=== PATIENT | female | born 1955 | race Two or more races ===

== ENCOUNTER 2017-07-05 14:06 | Emergency (ER) | payer MEDICAID ==
[2017-07-05 14:18] VITALS: BP 129/89
[2017-07-05] MEDS ORDERED: predniSONE 20 MG Tab PO ONE (14:45)
[2017-07-05] MEDS ORDERED: diphenhydrAMINE 50 MG Cap PO ONE (14:45)
--- NOTE | 2017-07-05 14:46 | EDM.PDOC ---
ED HPI GENERAL MEDICAL PROBLEM - General Chief Complaint: Allergic Reaction Stated Complaint: REACTION TO HAIR DYE Time Seen by Provider: 07/05/17 14:29 Source of Information: Reports: Patient History Limitations: Reports: No Limitations - History of Present Illness INITIAL COMMENTS - FREE TEXT/NARRATIVE: 62-year-old female with chief complaint of scalp itching and pain after using a hair dye. She used black hair dye last night dye her hair. She started getting itching and scalp pain. She washed her hair with abundant water and a hypoallergenic shampoo and now has redness of her scalp and pain and itching. No additional complaint. She has not taken any medications for this. - Related Data Allergies Allergy/AdvReac Type Severity Reaction Status Date / Time hair dye chemical Allergy Redness Uncoded 07/05/17 14:21 Home Meds: Home Meds Lisinopril/Hydrochlorothiazide [Lisinopril-Hctz 20-12.5 mg Tab] 1 tab PO DAILY 01/09/16 [History] Sucralfate 1 gram PO ASDIRECTED 01/09/16 [History] amLODIPine [Norvasc] 5 mg PO DAILY 01/09/16 [History] Prednisone [IMW: predniSONE] 60 mg PO WITHBREAKFAST #6 tab 07/05/17 [Rx] diphenhydrAMINE HCl [Benadryl] 25 mg PO QID PRN #30 capsule 07/05/17 [Rx] Past Medical History HEENT History: Reports: Impaired Vision Other HEENT History: wears glasses Cardiovascular History: Reports: Hypertension Gastrointestinal History: Reports: Cholelithiasis, Diverticulosis, GERD Other Gastrointestinal History: hiatal hernia, epigastric pain Genitourinary History: Reports: UTI, Recurrent [employer] History: Reports: Other Neuro History: syncope - Past Surgical History Female Surgical History: Reports: Tubal Ligation Social & Family History - Tobacco Use Smoking Status *Q: Current Every Day Smoker Years of Tobacco use: 1 Packs/Tins Daily: 0.3 Second Hand Smoke Exposure: No - Caffeine Use Caffeine Use: Reports: Coffee - Alcohol Use Days Per Week of Alcohol Use: 0 - Recreational Drug Use Recreational Drug Use: No Drug Use in Last 12 Months: No ED ROS ALLERGIC REACTION - Review of Systems Review Of Systems: See Below Constitutional: Denies: Fever Respiratory: Denies: Shortness of Breath Cardiovascular: Reports: No Symptoms GI/Abdominal: Reports: No Symptoms Skin: Reports: Pruritis, Rash ED EXAM GENERAL NO PERIP PULSE - Physical Exam Exam: See Below Exam Limited By: No Limitations General Appearance: Alert, WD/WN, No Apparent Distress Eye Exam: Bilateral Eye: Normal Inspection Ears: Normal External Exam Nose: Normal Inspection Throat/Mouth: Normal Inspection, Normal Oropharynx, Normal Voice, No Airway Compromise Head: Atraumatic, Normocephalic Neck: Normal Inspection, Supple, Non-Tender, Full Range of Motion Respiratory/Chest: No Respiratory Distress, Lungs Clear, Normal Breath Sounds. No: Wheezing Neurological: Alert, Oriented, Normal Cognition Psychiatric: Normal Affect, Normal Mood Skin Exam: Warm, Dry, Other (Scalp is erythematous and warm with some urticarial lesions also extending to the neck) Course - Vital Signs Last Recorded V/S: Last Vital Signs Temp 36.8 C 07/05/17 14:16 Pulse 84 07/05/17 14:16 Resp 20 07/05/17 14:16 BP 129/89 07/05/17 14:16 Pulse Ox 100 07/05/17 14:16 - Orders/Labs/Meds Meds: Medications Discontinued Medications Generic Name Dose Route Start Last Admin Trade Name Freq PRN Reason Stop Dose Admin Diphenhydramine HCl 50 mg 07/05/17 14:45 07/05/17 14:50 Benadryl PO 07/05/17 14:46 50 mg ONETIME ONE Administration Prednisone 60 mg 07/05/17 14:45 07/05/17 14:50 Prednisone PO 07/05/17 14:46 60 mg ONETIME ONE Administration Departure - Departure Time of Disposition: 15:05 Disposition: Home, Self-Care 01 Clinical Impression: Contact dermatitis Qualifiers: Contact dermatitis type: allergic Contact dermatitis trigger: dye Qualified Code(s): L23.4 - Allergic contact dermatitis due to dyes - Discharge Information Prescriptions: diphenhydrAMINE HCl [Benadryl] 25 mg PO QID PRN #30 capsule PRN Reason: Itching Prednisone [IMW: predniSONE] 60 mg PO WITHBREAKFAST #6 tab Referrals: PCP,None [Primary Care Provider] - Forms: ED Department Discharge Additional Instructions: 1. Take benadryl as prescribed for itching/rash 2. Take prednisone as prescribed to decrease scalp inflammation 3. Follow up with your primary care provider as needed for further care
== END 2017-07-05 15:41 | disposition home or self-care (01) ==
LOC: JD.ED 14:06
DX: L23.4 Allergic contact dermatitis due to dyes (principal); I10 Essential (primary) hypertension; F17.210 Nicotine dependence, cigarettes, uncomplicated; Z79.899 Other long term (current) drug therapy; Z87.440 Personal history of urinary (tract) infections
CPT/HCPCS: 99283; A9270

== ENCOUNTER 2021-10-28 17:36 | Emergency (ER) | payer MEDICAID, MEDICARE ==
[2021-10-28 18:05] VITALS: BP 177/97; PULSE 76
[2021-10-28] MEDS ORDERED: Ondansetron 4 MG/2 ML SDV IVPUSH ONE (18:18)
[2021-10-28] MEDS ORDERED: Sodium Chloride 0.9% 1,000 ML IV SCH (18:30)
[2021-10-28] MEDS: Sodium Chloride 0.9% 10 ML Syringe FLUSH PRN ×2 (18:37→20:37)
[2021-10-28] MEDS ORDERED: HYDROmorphone 1 MG/ML Syringe IVPUSH ONE (19:22)
[2021-10-28] MEDS ORDERED: Diatrizoate Meglumine/Diatrizoate Sodium 37% 120 ML Bottle PO ONE (19:42)
[2021-10-28] MEDS ORDERED: Iopamidol 612 MG/ML 100 ML Bottle IVPUSH ONE (19:42)
[2021-10-28] MEDS: Potassium Chloride 10 MEQ in Premix Bag 1 BAG IV SCH ×2 (20:49→21:56)
== END 2021-10-28 23:03 | disposition home or self-care (01) ==
LOC: JD.ED 17:36
DX: K40.90 Unilateral inguinal hernia, without obstruction or gangrene, not specified as recurrent (principal); E87.6 Hypokalemia; I10 Essential (primary) hypertension; K21.9 Gastro-esophageal reflux disease without esophagitis; Z87.891 Personal history of nicotine dependence; Z91.048 Other nonmedicinal substance allergy status; Z79.899 Other long term (current) drug therapy
CPT/HCPCS: 36415; 74177; 80053; 83690; 85025; 86140; 96365; 96366; 96375; 99284; J2405; J3480; J7030; Q9963; Q9967; U0002

== ENCOUNTER 2023-04-03 14:50 | Emergency (ER) | payer MEDICARE, MEDICAID ==
[2023-04-03] MEDS ORDERED: Adenosine 12 MG/4 ML SDV ONE (14:55)
[2023-04-03] MEDS ORDERED: Adenosine 6 MG/2 ML SDV IVPUSH ONE ×2 (14:55)
[2023-04-03] MEDS ORDERED: Adenosine 6 MG/2 ML SDV ONE (14:55)
[2023-04-03] MEDS ORDERED: Sodium Chloride 0.9% 10 ML Syringe FLUSH PRN (15:06)
[2023-04-03] MEDS ORDERED: Sodium Chloride 0.9% 1,000 ML IV SCH (15:15)
[2023-04-03 15:17] LABS: BASOPHILS ABSOLUTE AUTO 0.14 K/mm3 (0.01-0.08); BASOPHILS PERCENT AUTO 2.1 % (0.1-1.2); EOSINOPHILS ABSOLUTE AUTO 0.09 K/mm3 (0.04-0.36); EOSINOPHILS PERCENT AUTO 1.3 (0.7-5.8); HEMOGLOBIN 14.6 gm/dl (11.2-15.7); IMMATURE GRAN ABSOLUTE AUTO 0.01 K/mm3 (0.00-0.10); IMMATURE GRAN PERCENT AUTO 0.1 % (<=1.0); LYMPHOCYTES ABSOLUTE AUTO 4.51 K/mm3 (1.18-3.74); LYMPHOCYTES PERCENT AUTO 67.5 % (19.3-51.7); MEAN CORPUSCULAR HEMOGLOBIN 27.2 pg (25.6-32.2); MEAN CORPUSCULAR HGB CONC 32.4 g/dl (32.2-35.5); MEAN PLATELET VOLUME 11.3 fl (9.4-12.3); MONOCYTES ABSOLUTE AUTO 0.38 K/mm3 (0.24-0.36); MONOCYTES PERCENT AUTO 5.7 % (4.7-12.5); NEUTROPHILS ABSOLUTE AUTO 1.55 K/mm3 (1.56-6.13); NEUTROPHILS PERCENT AUTO 23.3 % (34.0-71.1); PLATELET COUNT,PLT 286 K/mm3 (182-369); RED BLOOD CELL COUNT 5.36 M/mm3 (3.98-5.22); WHITE BLOOD CELL COUNT,WBC 6.68 K/mm3 (3.98-10.04)
[2023-04-03 15:39] LABS: A/G RATIO 0.8 (1-2); ALBUMIN 3.6 g/dl (3.4-5.0); ANION GAP 14.2 (5-15); BILIRUBIN TOTAL 0.5 mg/dL (0.2-1.0); CALCIUM 8.7 mg/dL (8.5-10.1); EST CRCL DRUG DOSING (CG) 46.5 mL/min; POTASSIUM,K 3.2 mEq/L (3.5-5.1); PROTEIN TOTAL,TP 7.9 g/dl (6.4-8.2); TSH 4.992 uIU/mL (0.358-3.74)
[2023-04-03 17:30] VITALS: BP 119/70; PULSE 91
== END 2023-04-03 17:05 | disposition home or self-care (01) ==
LOC: JD.ED 14:50
DX: I47.1 Supraventricular tachycardia (principal); I10 Essential (primary) hypertension; E03.9 Hypothyroidism, unspecified; Z91.041 Radiographic dye allergy status; Z79.899 Other long term (current) drug therapy
CPT/HCPCS: 71045; 80053; 84436; 84443; 84484; 85025; 93005; 96361; 96374; 99285; J0153; J3490; J7030; 36415; 93010; 99284

== ENCOUNTER 2023-07-29 18:58 | Observation (INO) | payer MEDICARE, MEDICAID ==
[2023-07-29] MEDS ORDERED: Ondansetron 4 MG/2 ML SDV IVPUSH ONE ×2 (19:26→20:36)
[2023-07-29] MEDS ORDERED: Famotidine 20 MG/2 ML SDV IVPUSH ONE (19:34)
[2023-07-29 20:02] LABS: BASOPHILS ABSOLUTE AUTO 0.1 K/mm3 (0.0-0.2); EOSINOPHILS ABSOLUTE AUTO 0.1 K/mm3 (0.0-0.4); EOSINOPHILS PERCENT AUTO 0.5 % (0.0-6.0); HEMATOCRIT 43.2 % (37.0-47.0); HEMOGLOBIN 14.4 gm/dl (12.0-16.0); IMMATURE GRAN ABSOLUTE AUTO 0.03 K/mm3 (0.00-0.05); IMMATURE GRAN PERCENT AUTO 0.3 % (0.0-0.4); LYMPHOCYTES ABSOLUTE AUTO 2.2 K/mm3 (1.0-4.8); LYMPHOCYTES PERCENT AUTO 22.5 % (24.0-44.0); MEAN CORPUSCULAR HEMOGLOBIN 28.6 pg (28.0-32.0); MEAN CORPUSCULAR HGB CONC 33.3 g/dl (32.0-36.0); MEAN CORPUSCULAR VOLUME 85.9 fl (83.0-99.0); MONOCYTES ABSOLUTE AUTO 0.4 K/mm3 (0.0-0.8); MONOCYTES PERCENT AUTO 3.5 % (0.0-8.0); NEUTROPHILS ABSOLUTE AUTO 7.2 K/mm3 (1.8-7.7); NEUTROPHILS PERCENT AUTO 72.2 % (41.0-71.0); PLATELET COUNT,PLT 274 K/mm3 (150-400); RED BLOOD CELL COUNT 5.03 M/mm3 (4.10-5.30); WHITE BLOOD CELL COUNT,WBC 9.94 K/mm3 (3.9-11.3)
[2023-07-29] MEDS ORDERED: Sodium Chloride 0.9% 10 ML Syringe FLUSH ONE (20:24)
[2023-07-29] MEDS ORDERED: Iopamidol 612 MG/ML 100 ML Bottle IVPUSH ONE (20:24)
[2023-07-29 20:30] LABS: LACTIC ACID 0.8 mmol/L (0.4-2.0)
[2023-07-29] MEDS ORDERED: Prochlorperazine 10 MG/2 ML SDV IVPUSH ONE (20:37)
[2023-07-29 20:40] LABS: A/G RATIO 0.9 (1-2); ALANINE AMINOTRANSFERASE,ALT 14 U/L (14-59); ALKALINE PHOSPHATASE 90 U/L (46-116); ANION GAP 15.9 (5-15); ASPARTATE AMNIOTRANSFERASE,AST 16 U/L (15-37); BILIRUBIN TOTAL 0.5 mg/dL (0.2-1.0); BLOOD UREA NITROGEN,BUN 12 mg/dL (7-18); C-REACTIVE PROTEIN <0.2 mg/dL (<1.0); CALCIUM 9.3 mg/dL (8.5-10.1); CARBON DIOXIDE,CO2 26 mEq/L (21-32); CHLORIDE,CL 99 mEq/L (98-107); CREATININE 0.8 mg/dL (0.55-1.02); EST CRCL DRUG DOSING (CG) 57.03 mL/min; ESTIMATED GFR 80 mL/min (>60); GLUCOSE RANDOM 178 mg/dL (70-99); POTASSIUM,K 2.9 mEq/L (3.5-5.1); PROTEIN TOTAL,TP 8.3 g/dl (6.4-8.2); SODIUM,NA 138 mEq/L (136-145)
[2023-07-29] MEDS ORDERED: Sodium Chloride 0.9% 50 ML ONE (20:41)
[2023-07-29] MEDS ORDERED: Sodium Chloride 0.9% 1,000 ML IV SCH (20:45)
[2023-07-29] MEDS: Potassium Chloride 10 MEQ in Premix Bag 1 BAG IV SCH (21:50)
[2023-07-29] MEDS ORDERED: Lidocaine 2% 5 ML SDV ONE (22:25)
[2023-07-29] MEDS ORDERED: Rocuronium 50 MG/5 ML Vial ONE (22:25)
[2023-07-29] MEDS ORDERED: Succinylcholine 200 MG/10 ML MDV ONE (22:26)
[2023-07-29] MEDS ORDERED: Propofol 200 MG/20 ML SDV ONE (22:26)
[2023-07-29] MEDS ORDERED: fentaNYL 100 MCG/2 ML SDV ONE (22:26)
[2023-07-29] MEDS ORDERED: Midazolam 1 MG/ML 2 ML SDV ONE (22:26)
[2023-07-29] MEDS ORDERED: ceFAZolin 2 GM in Sodium Chloride 0.9% 50 ML IV ONE (22:32)
[2023-07-29] MEDS ORDERED: Acetaminophen/HYDROcodone 325-10 MG Tab PO PRN (22:46)
[2023-07-29] MEDS ORDERED: Phenylephrine 1% 10 MG/ML SDV ONE (22:53)
[2023-07-29] MEDS ORDERED: Sodium Chloride 0.9% 100 ML ONE (22:53)
[2023-07-29] MEDS ORDERED: ePHEDrine 50 MG/ML SDV ONE (23:01)
[2023-07-29 23:13] LABS: APPEARANCE,URINE CLEAR (Clear); BILIRUBIN,URINE NEGATIVE (Negative); COLOR,URINE YELLOW (Yellow); GLUCOSE,URINE NEGATIVE (Negative); KETONES,URINE TRACE (Negative); LEUKOCYTE ESTERASE,URINE TRACE (Negative); NITRITE,URINE NEGATIVE (Negative); OCCULT BLOOD,URINE NEGATIVE (Negative); PH,URINE 7.5 (5.0-8.0); PROTEIN,URINE NEGATIVE (Negative); UROBILINOGEN,URINE 0.2 (0.2-1.0)
[2023-07-29] MEDS ORDERED: Bupivacaine 0.5% 30 ML SDV ONE (23:19)
[2023-07-29] MEDS ORDERED: Lidocaine 1% 30 ML SDV ONE (23:19)
[2023-07-29] MEDS ORDERED: EPINEPHrine 1 MG/ML SDV ONE (23:21)
[2023-07-29] MEDS ORDERED: Lidocaine 2% 11 ML Jelly Filled Syringe ONE (23:32)
[2023-07-29 23:46] LABS: BACTERIA,URINE FEW /hpf (FEW); MUCUS,URINE FEW /hpf (FEW); RBC,URINE 0-5 /hpf (0-5); SQUAMOUS EPITHELIAL CELLS,UR 0-5 /hpf (0-5); WBC,URINE 0-5 /hpf (0-5)
[2023-07-30] MEDS ORDERED: Ondansetron 4 MG/2 ML SDV IVPUSH PRN ×2 (00:06→11:47)
[2023-07-30] MEDS ORDERED: HYDROmorphone 0.5 MG/0.5 ML Syringe IVPUSH PRN (00:06)
[2023-07-30] MEDS ORDERED: fentaNYL 100 MCG/2 ML SDV IVPUSH PRN (00:06)
[2023-07-30] MEDS ORDERED: Morphine 2 MG/ML SYRINGE IVPUSH PRN (01:44)
[2023-07-30] MEDS ORDERED: Naloxone 0.4 MG/ML SDV IVPUSH PRN (01:44)
[2023-07-30] MEDS: Heparin Sodium 5,000 Units/ML Vial SUBCUT SCH ×4 (04:17→22:06)
[2023-07-30] MEDS: D5 1/2 NS w/ 10 mEq/L KCl 1,000 ML IV SCH ×2 (04:17→21:25)
[2023-07-30 04:40] LABS: BASOPHILS PERCENT AUTO 0.4 % (0.0-1.0); HEMATOCRIT 38.2 % (37.0-47.0); HEMOGLOBIN 12.6 gm/dl (12.0-16.0); IMMATURE GRAN ABSOLUTE AUTO 0.01 K/mm3 (0.00-0.05); IMMATURE GRAN PERCENT AUTO 0.1 % (0.0-0.4); LYMPHOCYTES ABSOLUTE AUTO 1.5 K/mm3 (1.0-4.8); LYMPHOCYTES PERCENT AUTO 22.6 % (24.0-44.0); MEAN CORPUSCULAR HEMOGLOBIN 28.4 pg (28.0-32.0); MEAN PLATELET VOLUME 10.6 fl (9.4-12.3); MONOCYTES ABSOLUTE AUTO 0.3 K/mm3 (0.0-0.8); MONOCYTES PERCENT AUTO 3.9 % (0.0-8.0); NEUTROPHILS ABSOLUTE AUTO 4.9 K/mm3 (1.8-7.7); PLATELET COUNT,PLT 219 K/mm3 (150-400); RED BLOOD CELL COUNT 4.44 M/mm3 (4.10-5.30); WHITE BLOOD CELL COUNT,WBC 6.69 K/mm3 (3.9-11.3)
[2023-07-30 04:56] LABS: A/G RATIO 0.9 (1-2); ALBUMIN 3.2 g/dl (3.4-5.0); ANION GAP 12.3 (5-15); BILIRUBIN TOTAL 0.4 mg/dL (0.2-1.0); BUN/CREATININE RATIO 11.4 (14-18); CALCIUM 8.3 mg/dL (8.5-10.1); CREATININE 0.7 mg/dL (0.55-1.02); EST CRCL DRUG DOSING (CG) 65.5 mL/min; POTASSIUM,K 3.3 mEq/L (3.5-5.1); PROTEIN TOTAL,TP 6.7 g/dl (6.4-8.2)
[2023-07-30] MEDS: Potassium Chloride 10 MEQ in Premix Bag 1 BAG IV SCH (06:27)
[2023-07-30] MEDS ORDERED: Potassium Chloride 10 MEQ in Premix Bag 1 BAG IV ONE (06:28)
[2023-07-30] MEDS: Polyethylene Glycol 3350 Powder 17 GM Packet PO SCH (09:58)
[2023-07-30] MEDS: Docusate Sodium 100 MG Cap PO SCH ×2 (09:58→21:15)
[2023-07-30] MEDS: Pantoprazole 40 MG Vial IVPUSH SCH (13:25)
[2023-07-30] MEDS: Hydrochlorothiazide 12.5 MG Cap PO SCH (21:15)
[2023-07-30] MEDS: amLODIPine 5 MG Tab PO SCH (21:15)
[2023-07-30] MEDS: Lisinopril 20 MG Tab PO SCH (21:16)
[2023-07-31 04:48] VITALS: PULSE 81
[2023-07-31] MEDS ORDERED: Levothyroxine 50 MCG Tab PO SCH (06:00)
[2023-07-31] MEDS: Heparin Sodium 5,000 Units/ML Vial SUBCUT SCH (06:09)
[2023-07-31 07:34] LABS: BASOPHILS ABSOLUTE AUTO 0.1 K/mm3 (0.0-0.2); BASOPHILS PERCENT AUTO 0.9 % (0.0-1.0); EOSINOPHILS PERCENT AUTO 0.3 % (0.0-6.0); HEMOGLOBIN 13.6 gm/dl (12.0-16.0); IMMATURE GRAN ABSOLUTE AUTO 0.02 K/mm3 (0.00-0.05); IMMATURE GRAN PERCENT AUTO 0.3 % (0.0-0.4); LYMPHOCYTES PERCENT AUTO 39.7 % (24.0-44.0); MEAN CORPUSCULAR HEMOGLOBIN 28.9 pg (28.0-32.0); MEAN CORPUSCULAR VOLUME 85.1 fl (83.0-99.0); MEAN PLATELET VOLUME 11.2 fl (9.4-12.3); MONOCYTES ABSOLUTE AUTO 0.6 K/mm3 (0.0-0.8); MONOCYTES PERCENT AUTO 7.5 % (0.0-8.0); NEUTROPHILS ABSOLUTE AUTO 3.8 K/mm3 (1.8-7.7); NEUTROPHILS PERCENT AUTO 51.3 % (41.0-71.0); PLATELET COUNT,PLT 239 K/mm3 (150-400); WHITE BLOOD CELL COUNT,WBC 7.45 K/mm3 (3.9-11.3)
[2023-07-31 08:03] LABS: A/G RATIO 0.9 (1-2); ALBUMIN 3.4 g/dl (3.4-5.0); ANION GAP 13.2 (5-15); BILIRUBIN TOTAL 0.9 mg/dL (0.2-1.0); CREATININE 0.6 mg/dL (0.55-1.02); EST CRCL DRUG DOSING (CG) 72.49 mL/min; POTASSIUM,K 3.2 mEq/L (3.5-5.1); PROTEIN TOTAL,TP 7.4 g/dl (6.4-8.2)
[2023-07-31 08:20] VITALS: BP 150/76
[2023-07-31] MEDS: Docusate Sodium 100 MG Cap PO SCH (09:15)
[2023-07-31] MEDS: Pantoprazole 40 MG Vial IVPUSH SCH (09:15)
[2023-07-31] MEDS: Potassium Chloride 10 MEQ in Premix Bag 1 BAG IV SCH ×2 (09:16→11:38)
[2023-07-31] MEDS: Polyethylene Glycol 3350 Powder 17 GM Packet PO SCH (09:17)
[2023-07-31] MEDS: Hydrochlorothiazide 12.5 MG Cap PO SCH (10:01)
[2023-07-31] MEDS: amLODIPine 5 MG Tab PO SCH (10:01)
[2023-07-31] MEDS: Lisinopril 20 MG Tab PO SCH (10:02)
[2023-07-31 10:15] LABS: SLIDE REVIEW NORMAL SMEAR
[2023-07-31] MEDS ORDERED: amLODIPine 5 MG Tab **PTOM PO SCH (21:00)
[2023-07-31] MEDS ORDERED: LISINOPRIL PO SCH (21:00)
[2023-07-31] MEDS ORDERED: HCTZ PO SCH (21:00)
[2023-08-01] MEDS ORDERED: LEVOTHYROXINE 50 MCG PO SCH (06:00)
== END 2023-07-31 15:03 | disposition home or self-care (01) ==
LOC: JD.ED 18:58 → JD.SDS 23:19 → JD.MS 07-30 01:16
PROVIDERS: ADMIT Surgery; ATTEND Surgery
DX: K40.31 Unilateral inguinal hernia, with obstruction, without gangrene, recurrent (principal); E03.9 Hypothyroidism, unspecified; I10 Essential (primary) hypertension; K21.9 Gastro-esophageal reflux disease without esophagitis; F41.9 Anxiety disorder, unspecified; Z91.048 Other nonmedicinal substance allergy status; Z79.890 Hormone replacement therapy; Z79.899 Other long term (current) drug therapy; Z91.040 Latex allergy status
CPT/HCPCS: 36415; 49521; 74177; 80053; 81001; 83605; 85025; 86140; 96361; 96365; 96366; 96372; 96375; 99285; A9270; C1781; C9113; G0378; J0171; J0330; J0690; J0780; J1644; J2250; J2371; J2405; J2704; J3010; J3480; J3490; J7030; Q9967; 99284